=== PATIENT | female | born 1960 | race Caucasian/White ===

== ENCOUNTER 2016-09-01 09:58 | Emergency (ER) | payer BC ==
[~2016-09-01] VITALS: Ht 153.7 cm; Wt 53.6 kg
[2016-09-01 09:59] VITALS: TEMP 37; Ht 153.7 cm; Wt 53.6 kg
[2016-09-01 10:21] VITALS: O2SAT 95
[2016-09-01] MEDS ORDERED: IBUP-1050 PO (10:48)
[2016-09-01] MEDS ORDERED: ZNTT/150 PO (10:48)
[2016-09-01 11:16] LABS: BASO % 0.9 %; BASO ABS # 0.04 K/uL (0-0.2); COMPLETE YES; LYMPH % 27.9 %; LYMPH ABS # 1.29 K/uL (1.2-3.4); MEAN CELL VOLUME 88.2 fL (80-100); MEAN CORPUSCULAR HEMOGLOBIN 29.9 pg (25-34); MEAN CORPUSCULAR HGB CONC 33.9 g/dl (32-36); MEAN PLATELET VOLUME 9.1 fL (7.4-10.4); NEUT % 62.2 %; PLATELET COUNT 280 K/uL (130-400); RED BLOOD COUNT 4.08 M/uL (4.2-5.4); WHITE BLOOD COUNT 4.63 K/uL (4.8-10.8)
--- NOTE | 2016-09-01 11:16 | EMERGENCY ROOM VISIT NOTE ---
History Report prepared by Kenneth: Jamila Muñoz Under the Supervision of: Dr. Asha Gilbert D.O. First contact with patient: 10:48 Chief Complaint: CARDIAC ASSESSMENT Stated Complaint: CHEST PAIN History of Present Illness The patient is a 56 year old female who presents to the Emergency Room for a cardiac assessment. Three nights ago the patient woke up with pain in her back just below her left shoulder blade. She ignored this pain and woke up the next morning feeling fine. She went to work and came home, ate dinner, and went to bed. She felt fine when she went to bed, but woke up around 2-3am with left- sided jaw pain and left arm pain. She then developed central chest pain that she describes as burning. She thought that it was GERD, so she took a ranitidine and ibuprofen. The patient states that she has had pain like this before. Typically a heating pad on her chest helps to alleviate her pain. She tried using her heating pad and states that her pain improved. The next day the patient was feeling well again. She went to a picnic and ate dinner early. She was sitting and watching a movie when she developed central, burning chest pain again just before 10pm. She took another ranitidine and it did not help. Her pain improved with standing and walking around. The patient went to sleep but woke up before 6am with pain again. She took an ibuprofen and tried using her heating pad again. She states that she has been unable to get comfortable today. Her chest pain has been constant since last night. The patient states that she just feels worn out and generally weak at this time. She is not currently having any pain into her arms or back. She rates her current pain as a 2/10 in severity. The patient has had some cough, shortness of breath, and nausea with these symptoms, but states that they could be due to anxiety because she gets anxious when experiencing this chest pain. She denies fevers, chills, cough, cold symptoms, and vomiting. She recently traveled back to [place] from [place]. On review of EMR, pt has a history of an NSTEMI in March 2015. Was admitted, seen by cards, had echo and stress test, ultimately elevated troponin felt not to be primarily due to cardiac event. Pt states she did follow-up in the office with cardiology after that admission. Source of History: patient Onset: 3 nights ago Position: chest Symptom Intensity: 04/10 Quality: burning Timing: constant Modifying Factors (Relieving): ibuprofen, heat Associated Symptoms: + cough, + SOB, + nausea, + back pain, + weakness ( generalized), No fevers, No chills, No vomiting Note: Pt had left-sided jaw pain and left arm pain. Review of Systems See HPI for pertinent positives & negatives. A total of 10 systems reviewed and were otherwise negative. Past Medical & Surgical Medical Problems: (1) Normal colonoscopy Surgical Problems: (1) H/O esophagogastroduodenoscopy Social History Problems: (1) Tobacco use Family History FH: CAD (coronary artery disease) FATHER (CABG at age 66 ) FH: cancer MOTHER (Breast, Uterine ) Social History Smoking Status: Current Every Day Smoker Alcohol Use: none Drug Use: none Marital Status: single Housing Status: lives alone Occupation Status: employed Current/Historical Medications Scheduled Ibuprofen (Advil), 200-600 MG PO Q4H Ranitidine (Zantac), 150 MG PO DAILY Sucralfate (Carafate), 10 ML PO ACHS Allergies Coded Allergies: Doxycycline (Unverified Allergy, Unknown, ITCHING, 09/01/16) Penicillins (Verified Allergy, Unknown, ., 09/01/16) Sulfa Antibiotics (Verified Allergy, Unknown, ., 09/01/16) Adhesives (Verified Adverse Reaction, Intermediate, Rash - transdermal patches, 09/01/16) Iodinated Diagnostic Agents (Verified Adverse Reaction, Intermediate, SHORTNESS OF BREATH, 09/01/16) Physical Exam Vital Signs Date Time Temp Pulse Resp B/P (MAP) Pulse Ox O2 Delivery O2 Flow Rate FiO2 09/01/16 16:03 77 16 116/78 95 09/01/16 15:02 78 09/01/16 14:24 75 18 108/70 94 Room Air 09/01/16 13:35 70 18 117/74 97 Room Air 09/01/16 12:29 85 18 112/70 99 Room Air 09/01/16 11:42 76 18 113/76 95 Room Air 09/01/16 10:36 78 09/01/16 10:24 72 18 131/81 99 Room Air 09/01/16 10:21 95 Room Air 09/01/16 10:04 99 Room Air 09/01/16 10:03 99 Room Air 09/01/16 09:59 37.0 94 16 162/80 97 Room Air Physical Exam GENERAL: alert, well appearing, well nourished, no distress, non-toxic EYE EXAM: normal conjunctiva, PERRL and EOM's grossly intact OROPHARYNX: no exudate, no erythema, lips, buccal mucosa, and tongue normal and mucous membranes are moist NECK: supple, no nuchal rigidity, no adenopathy, non-tender LUNGS: Clear to auscultation. Normal chest wall mechanics, no w/r/r HEART: no murmurs, S1 normal and S2 normal, mild reproducible tenderness at b/l sternal borders, no crepitus, no step offs along ribs ABDOMEN: abdomen soft, non-tender, normo-active bowel sounds, no masses, no rebound or guarding. BACK: Back is symmetrical on inspection and there is no deformity, no midline tenderness, no CVA tenderness. SKIN: no rashes and no bruising UPPER EXTREMITIES: upper extremities are grossly normal. LOWER EXTREMITIES: No pitting edema. NEURO EXAM: Normal sensorium, cranial nerves II-XII grossly intact, normal speech, no gross weakness of arms, no gross weakness of legs. Medical Decision & Procedures ER Provider Diagnostic Interpretation: Radiology results have been interpreted by the radiologist and reviewed by me. SINGLE VIEW CHEST CLINICAL HISTORY: Atypical chest pain. FINDINGS: An AP, portable, upright chest radiograph is compared to study dated 11/28/2015. The examination is degraded by portable technique and patient rotation. The cardiomediastinal silhouette is unremarkable. The lungs and pleural spaces are clear. No pneumothorax is seen. The bony thorax is grossly intact. IMPRESSION: No active disease in the chest. Electronically signed by: Vivek Hernandez M.D. 09/01/2016 11:22 AM Dictated Date/Time: 09/01/2016 11:22 AM Laboratory Results 09/01/16 10:36 Red Blood Count 4.08, Mean Corpuscular Volume 88.2, Mean Corpuscular Hemoglobin 29.9, Mean Corpuscular Hemoglobin Concent 33.9, Mean Platelet Volume 9.1, Neutrophils (%) (Auto) 62.2, Lymphocytes (%) (Auto) 27.9, Monocytes (%) (Auto) 6.0, Eosinophils (%) (Auto) 3.0, Basophils (%) (Auto) 0.9, Neutrophils # (Auto) 2.88, Lymphocytes # (Auto) 1.29, Monocytes # (Auto) 0.28, Eosinophils # (Auto) 0.14, Basophils # (Auto) 0.04 09/01/16 10:36 Test 09/01/16 10:36 09/01/16 14:10 White Blood Count 4.63 K/uL (4.8-10.8) Red Blood Count 4.08 M/uL (4.2-5.4) Hemoglobin 12.2 g/dL (12.0-16.0) Hematocrit 36.0 % (37-47) Mean Corpuscular Volume 88.2 fL (80-100) Mean Corpuscular Hemoglobin 29.9 pg (25-34) Mean Corpuscular Hemoglobin Concent 33.9 g/dl (32-36) Platelet Count 280 K/uL (130-400) Mean Platelet Volume 9.1 fL (7.4-10.4) Neutrophils (%) (Auto) 62.2 % Lymphocytes (%) (Auto) 27.9 % Monocytes (%) (Auto) 6.0 % Eosinophils (%) (Auto) 3.0 % Basophils (%) (Auto) 0.9 % Neutrophils # (Auto) 2.88 K/uL (1.4-6.5) Lymphocytes # (Auto) 1.29 K/uL (1.2-3.4) Monocytes # (Auto) 0.28 K/uL (0.11-0.59) Eosinophils # (Auto) 0.14 K/uL (0-0.5) Basophils # (Auto) 0.04 K/uL (0-0.2) RDW Standard Deviation 41.2 fL (36.4-46.3) RDW Coefficient of Variation 12.7 % (11.5-14.5) Immature Granulocyte % (Auto) 0.0 % Immature Granulocyte # (Auto) 0.00 K/uL (0.00-0.02) Prothrombin Time 10.8 SECONDS (9.0-12.0) Prothromb Time International Ratio 1.0 (0.9-1.1) D-Dimer 310 ug/L FEU (0-500) Anion Gap 8.0 mmol/L (3-11) Est Creatinine Clear Calc Drug Dose 53.8 ml/min Estimated GFR () 87.5 Estimated GFR (Non- 75.5 BUN/Creatinine Ratio 16.0 (10-20) Calcium Level 9.0 mg/dl (8.5-10.1) Total Bilirubin 0.7 mg/dl (0.2-1) Aspartate Amino Transf (AST/SGOT) 19 U/L (15-37) Alanine Aminotransferase (ALT/SGPT) 20 U/L (12-78) Alkaline Phosphatase 72 U/L (45-117) Pro-B-Type Natriuretic Peptide 114 pg/ml (0-900) Total Protein 7.2 gm/dl (6.4-8.2) Albumin 4.0 gm/dl (3.4-5.0) Globulin 3.2 gm/dl (2.5-4.0) Albumin/Globulin Ratio 1.3 (0.9-2) Lipase 132 U/L (73-393) Thyroid Stimulating Hormone (TSH) 1.810 uIu/ml (0.300-4.500) Troponin I < 0.015 ng/ml (0-0.045) Laboratory results per my review. Medications Administered Medications (Trade) Dose Ordered Sig/Milena Route Start Time Stop Time Status Last Admin Dose Admin Al Hydroxide/Mg Hydroxide (Maalox Susp) 30 ml STK-MED ONCE .ROUTE 09/01/16 12:24 09/01/16 12:25 DC 09/01/16 12:27 30 ML Lidocaine HCl (Viscous Lidocaine 2% Soln) 20 ml STK-MED ONCE .ROUTE 09/01/16 12:24 09/01/16 12:25 DC 09/01/16 12:27 20 ML ECG Indication: chest pain Rate (beats per minute): 73 Rhythm: normal sinus Findings: no acute ischemic change, no ectopy, other (normal axis, normal intervals) ED Course 1048: The patient was evaluated in room B9. A complete history and physical exam was performed. 1202: I updated the patient on her results. She is still having pain. 1208: GI cocktail 24 ml PO 1456: The patient is feeling slightly better. 1457: Sucralfate 1 gm PO 1500: Pantoprazole Sodium 40 mg IV 10 ml @ mls/min 1525: I reassessed the patient at this time. She is feeling better and resting comfortably. I discussed the results and treatment plan with the patient. I answered all pertaining questions that she had. She expressed understanding and verbalized agreement. The patient will be discharged home. Medical Decision Review of EMR: In March of 2015 the patient had an NSTEMI. Exercise stress test from March 2015 was non-ischemic, echo normal LV systolic function, no wall function abnormalities. Differential diagnoses includes but is not limited to acute coronary syndrome, myocardial infarction, pericarditis, pulmonary embolus, aortic dissection, pneumonia, pneumothorax, musculoskeletal, shingles, esophageal. Medication Reconciliation: I attest that I have personally reviewed the patient' s current medication list. Blood pressure screening: Patient was found to have a slightly elevated blood pressure due to circumstances. I do not believe that the patient requires hypertension monitoring. HEART score 2 Pt well appearing here despite complaints. Some relief with meds, did not want to stay for additional medication. Trop negative x 2. VS stable. No hx of htn. Doubt dissection, pe, tamponade, effusion, perf, gi bleed, infiltrate, acs. Possible GERD/gastritis, possible costochondritis, possible component of anxiety. Discussed with pt f/u with PCP, daily use of ranitidine, cessation of smoking, sx to watch/return for, she verbalized understanding and was agreeable with plan. Impression Primary Impression: Chest pain Additional Impression: GERD (gastroesophageal reflux disease) Scribe Attestation The scribe's documentation has been prepared under my direction and personally reviewed by me in its entirety. I confirm that the note above accurately reflects all work, treatment, procedures, and medical decision making performed by me. Departure Information Dispostion Home / Self-Care Prescriptions Sucralfate (CARAFATE) 1 Gm/10 Ml Barbara 10 ML PO ACHS, #1 BTL Prov: Asha Gilbert, DO 09/01/16 Referrals Kady Aponte (PCP) Forms IMPORTANT VISIT INFORMATION Patient Instructions My [facility] Additional Instructions Please call and follow up with your family doctor. You may continue using Tylenol and ibuprofen as needed for pain. Please take your ranitidine daily instead of as needed. Please consider using the Carafate in addition. Please avoid any acidic foods which could irritate her stomach including alcohol, coffee, soda, tomato-based products, or citrus fruits. If you have any recurrent or worsening pain, develop numbness or tingling, trouble breathing, dizziness, nausea or vomiting, abdominal pain, or have any other new concerns, please return the emergency room. Problem Qualifiers Primary Impression: Chest pain Chest pain type: unspecified Qualified Codes: R07.9 - Chest pain, unspecified Additional Impression: GERD (gastroesophageal reflux disease) Esophagitis presence: esophagitis presence not specified Qualified Codes: K21.9 - Gastro-esophageal reflux disease without esophagitis
[2016-09-01 11:21] LABS: ALT/SGPT 20 U/L (12-78); BLOOD UREA NITROGEN 14 mg/dl (7-18); CARBON DIOXIDE 26 mmol/L (21-32); CHLORIDE 106 mmol/L (98-107); CREATININE 0.86 mg/dl (0.60-1.20); GLUCOSE 89 mg/dl (70-99); POTASSIUM 3.9 mmol/L (3.5-5.1); SODIUM 140 mmol/L (136-145)
--- NOTE | 2016-09-01 11:23 | DIAGNOSTIC IMAGING REPORT ---
SINGLE VIEW CHEST CLINICAL HISTORY: Atypical chest pain. FINDINGS: An AP, portable, upright chest radiograph is compared to study dated 11/28/2015. The examination is degraded by portable technique and patient rotation. The cardiomediastinal silhouette is unremarkable. The lungs and pleural spaces are clear. No pneumothorax is seen. The bony thorax is grossly intact. IMPRESSION: No active disease in the chest. Electronically signed by: Vivek Hernandez M.D. 09/01/2016 11:22 AM Dictated Date/Time: 09/01/2016 11:22 AM
[2016-09-01 11:32] LABS: ALB/GLOB RATIO 1.3 (0.9-2); ALKALINE PHOSPHATASE 72 U/L (45-117); AST/SGOT 19 U/L (15-37)
[2016-09-01 11:36] LABS: PROTHROMBIN TIME (PATIENT) 10.8 SECONDS (9.0-12.0)
[2016-09-01] MEDS ORDERED: GI COCKTAIL PO STA (12:08)
[2016-09-01] MEDS ORDERED: ALUMINUM/MAGNESIUM SUSP 30 ML UDC ONE (12:24)
[2016-09-01] MEDS ORDERED: LIDOCAINE HCL 2% VISC SOLN 20 ML UDC ONE (12:24)
[2016-09-01] MEDS ORDERED: SUCRALFATE 1 GM/10 ML UDC PO STA (14:57)
[2016-09-01] MEDS ORDERED: PANTOprazole INJ 40 MG in SYRINGE 0 ML IV ONE (15:00)
[2016-09-01] MEDS ORDERED: CRFL PO (15:37)
[2016-09-01 16:03] VITALS: BP 116/78; PULSE 77; O2SAT 95
== END 2016-09-01 16:04 | disposition home or self-care (01) ==
LOC: C.EDB 09:59
DX: R07.9 Chest pain, unspecified (principal); K21.9 Gastro-esophageal reflux disease without esophagitis; F17.200 Nicotine dependence, unspecified, uncomplicated; I25.2 Old myocardial infarction; Z98.890 Other specified postprocedural states; Z82.49 Family history of ischemic heart disease and other diseases of the circulatory system; Z80.3 Family history of malignant neoplasm of breast; Z80.49 Family history of malignant neoplasm of other genital organs; Z79.899 Other long term (current) drug therapy

== ENCOUNTER → 2016-11-04 | Outpatient (CLI) | payer BC ==
[~2016-11-04] MED LIST: CRFL PO; IBUP-1050 PO; ZNTT/150 PO
--- NOTE | 2016-11-05 12:43 | MAMMOGRAPHY REPORT ---
BILATERAL DIGITAL SCREENING MAMMOGRAM TOMOSYNTHESIS WITH CAD: 11/04/2016 CLINICAL HISTORY: Routine screening. TECHNIQUE: Breast tomosynthesis in addition to standard 2D mammography was performed. Current study was also evaluated with a Computer Aided Detection (CAD) system. COMPARISON: Comparison is made to exams dated: 08/27/2015 mammogram, 09/13/2014 mammogram, 03/13/2014 m ammogram, 09/05/2013 mammogram, 08/24/2013 mammogram, and 07/17/2011 mammogram - [facility] nter. BREAST COMPOSITION: The tissue of both breasts is heterogeneously dense, which may obscure small mas ses. FINDINGS: No suspicious masses, calcifications, or areas of architectural distortion are noted in ei ther breast. There has been no significant interval change compared to prior exams. IMPRESSION: ACR BI-RADS CATEGORY 1: NEGATIVE There is no mammographic evidence of malignancy. A 1 year screening mammogram is recommended. The pa tient will receive written notification of the results. Approximately 10% of breast cancers are not detected with mammography. A negative mammographic report should not delay biopsy if a clinically suggestive mass is present. Scarlet King M.D. ah/:11/04/2016 16:12:28 Slot Floorperson: Modesta ARMENTA(Sailaja)(Pedro Luis), [facility] letter sent: Normal 1/2 BI-RADS Code: ACR BI-RADS Category 1: Negative
== END | disposition home or self-care (01) ==
LOC: C.MAMM 15:49
PROVIDERS: ATTEND Nurse Practitioner Family
DX: Z12.31 Encounter for screening mammogram for malignant neoplasm of breast (principal)

== ENCOUNTER → 2017-05-14 | Outpatient (CLI) | payer OTHER ==
[~2017-05-14] MED LIST changes: -CRFL PO; +RANI150T85 PO; -ZNTT/150 PO
--- NOTE | 2017-05-14 10:51 | DIAGNOSTIC IMAGING REPORT ---
ULTRASOUND RIGHT LOWER EXTREMITY VENOUS CLINICAL HISTORY: Right leg pain. COMPARISON STUDY: No priors. TECHNIQUE: Real-time, grayscale, and color Doppler sonography of the deep veins of the right lower extremity was performed from the inguinal crease to the calf. Compression and augmentation were utilized. FINDINGS: There is no sonographic evidence of deep venous thrombosis identified in the right lower extremity. The common femoral, superficial femoral, and popliteal veins are patent and normally compressible. The greater saphenous vein and the profunda femoris vein at the junction with the common femoral vein are clear. The visualized calf veins are patent. IMPRESSION: There is no sonographic evidence of deep venous thrombosis identified in the right lower extremity. Electronically signed by: Vivek Hernandez M.D. 05/14/2017 10:50 AM Dictated Date/Time: 05/14/2017 10:49 AM
== END | disposition home or self-care (01) ==
LOC: C.ULTRBC 09:53
PROVIDERS: ATTEND Family Medicine
DX: M79.661 Pain in right lower leg (principal)

== ENCOUNTER → 2017-07-13 | Outpatient (CLI) | payer OTHER ==
--- NOTE | 2017-07-13 22:40 | DIAGNOSTIC IMAGING REPORT ---
CHEST 2 VIEWS ROUTINE HISTORY: 57 years-old Female R50.9;R07.9 acute cough and fever COMPARISON: Chest radiograph 09/01/2016 TECHNIQUE: PA and lateral views of the chest FINDINGS: Cardiomediastinal and hilar silhouettes are within normal limits. No pneumothorax, pleural effusion or overt pulmonary edema. Subtle subsegmental alveolar opacities of the inferior segment lingula are seen best on the lateral view with air bronchograms. Bones of the chest appear grossly intact. IMPRESSION: Subtle subsegmental alveolar opacities of the lingula with air bronchograms seen best on the lateral view may reflect pneumonia within the appropriate clinical setting. The above report was generated using voice recognition software. It may contain grammatical, syntax or spelling errors. Electronically signed by: Onur Burkett M.D. 07/13/2017 10:39 PM Dictated Date/Time: 07/13/2017 10:35 PM
== END | disposition home or self-care (01) ==
LOC: C.RAD 21:16
PROVIDERS: ATTEND Family Medicine
DX: R91.8 Other nonspecific abnormal finding of lung field (principal); R50.9 Fever, unspecified; R07.9 Chest pain, unspecified

== ENCOUNTER 2017-10-23 03:05 | Emergency (ER) | payer OTHER ==
[~2017-10-23] VITALS: Ht 154.9 cm; Wt 48.4 kg
[2017-10-23 03:08] VITALS: TEMP 36.9; Ht 154.9 cm; Wt 48.4 kg
[2017-10-23 03:30] VITALS: O2SAT 98
[2017-10-23 03:47] LABS: BASO % 0.4 %; BASO ABS # 0.02 K/uL (0-0.2); EOS % 2.5 %; EOS ABS # 0.13 K/uL (0-0.5); HEMATOCRIT 36.8 % (37-47); HEMOGLOBIN 12.6 g/dL (12.0-16.0); IG# 0.01 K/uL (0.00-0.02); LYMPH % 47.9 %; LYMPH ABS # 2.54 K/uL (1.2-3.4); MEAN CELL VOLUME 89.3 fL (80-100); MEAN CORPUSCULAR HEMOGLOBIN 30.6 pg (25-34); MEAN CORPUSCULAR HGB CONC 34.2 g/dl (32-36); MEAN PLATELET VOLUME 9.6 fL (7.4-10.4); MONO % 6.8 %; MONO ABS # 0.36 K/uL (0.11-0.59); NEUT % 42.2 %; NEUT ABS # 2.24 K/uL (1.4-6.5); PLATELET COUNT 231 K/uL (130-400); RED CELL DISTRIBUTION WIDTH SD 42.5 fL (36.4-46.3)
[2017-10-23 03:55] LABS: ISTAT CREATININE 0.8 mg/dl (0.6-1.3); ISTAT IONIZED CALCIUM 1.16 mmol/l (1.12-1.32); ISTAT POTASSIUM 3.4 mEq/L (3.3-5.0)
[2017-10-23] MEDS ORDERED: METHYLPREDNISOLONE 125 MG VIAL IV STA (04:05)
[2017-10-23] MEDS ORDERED: SODIUM CHLORIDE 0.9% 1000ML 1,000 ML IV STA (04:05)
[2017-10-23] MEDS ORDERED: DiphenhydrAMINE HCL 50 MG/ML VIAL IV STA (04:05)
[2017-10-23] MEDS ORDERED: RANITIDINE HCL 150 MG TAB PO STA (04:05)
--- NOTE | 2017-10-23 04:05 | EMERGENCY ROOM VISIT NOTE ---
History Report prepared by Kenneth: Tammy Espinal Under the Supervision of: Dr. Navin Weiss M.D. First contact with patient: 03:11 Chief Complaint: TACHYCARDIA Stated Complaint: TACHYCARDIA History of Present Illness The patient is a 57 year old female who presents to the Emergency Room with complaints of worsening tachycardia that started in August 2017. The patient reports that her tachycardia is causing her chest pain in the center of her chest, which worsens when she lies down. She notes that she has had difficulty sleeping at night secondary to her chest pain. She describes her current chest pain as a burning sensation. The patient also complains of abdominal pain and sore ribs. She states that she is also experiencing GERD and is taking medication for it. She notes that she recently has experienced difficulty mowing her lawn and now has to split the chore between several sessions. She denies any insect bites although she claims to spend a lot of time outside. The patient reports that she is scheduled to have a stress test in 3 days. She also reports that she smokes 4 cigarettes a day and takes baby aspirin. She states she has a family history of PACs. Source of History: patient Onset: August 2017 Position: chest Quality: other (tachycardia) Timing: worsening Modifying Factors (Worsening): other (lying down) Associated Symptoms: + abdominal pain Note: Additional symptoms: difficulty sleeping, sore ribs, GERD Denies: insect bites Review of Systems See HPI for pertinent positives & negatives. A total of 10 systems reviewed and were otherwise negative. Past Medical & Surgical Medical Problems: (1) GERD (gastroesophageal reflux disease) (2) Normal colonoscopy Surgical Problems: (1) H/O esophagogastroduodenoscopy Social History Problems: (1) Tobacco use Family History FH: CAD (coronary artery disease) FATHER (CABG at age 66 ) FH: cancer MOTHER (Breast, Uterine ) Social History Smoking Status: Current Every Day Smoker Alcohol Use: none Drug Use: none Marital Status: single Housing Status: lives alone Occupation Status: employed Current/Historical Medications Scheduled Ranitidine (Zantac), 150 MG PO DAILY Allergies Coded Allergies: Doxycycline (Unverified Allergy, Unknown, ITCHING, 10/23/17) Penicillins (Verified Allergy, Unknown, ., 10/23/17) Sulfa Antibiotics (Verified Allergy, Unknown, ., 10/23/17) Adhesives (Verified Adverse Reaction, Intermediate, Rash - transdermal patches, 10/23/17) Iodinated Diagnostic Agents (Verified Adverse Reaction, Intermediate, SHORTNESS OF BREATH, 10/23/17) Physical Exam Vital Signs Date Time Temp Pulse Resp B/P (MAP) Pulse Ox O2 Delivery O2 Flow Rate FiO2 10/23/17 06:58 68 16 112/63 100 10/23/17 06:03 64 15 102/63 99 Room Air 10/23/17 05:11 57 16 147/70 99 Room Air 10/23/17 04:44 73 22 152/85 99 Room Air 10/23/17 04:37 72 10/23/17 04:05 92 17 99 Room Air 10/23/17 04:00 118/70 10/23/17 03:35 81 16 98 Room Air 10/23/17 03:33 131/78 10/23/17 03:30 98 Room Air 10/23/17 03:30 87 10/23/17 03:30 98 Room Air 10/23/17 03:25 98 Room Air 10/23/17 03:08 36.9 115 18 157/87 100 Room Air Physical Exam GENERAL: Awake, alert, well-appearing, in no acute distress HENT: Normocephalic, atraumatic. Oropharynx unremarkable. EYES: Normal conjunctiva. Sclera non-icteric. NECK: Supple. No nuchal rigidity. FROM. No JVD. RESPIRATORY: Clear to auscultation. CARDIAC: Regular rate, normal rhythm. Extremities warm and well perfused. Pulses equal. ABDOMEN: Soft, non-distended. No tenderness to palpation. No rebound or guarding. No masses. RECTAL: Deferred. MUSCULOSKELETAL: Chest examination reveals no tenderness. The back is symmetrical on inspection without obvious abnormality. There is no CVA tenderness to palpation. No joint edema. LOWER EXTREMITIES: Calves are equal size bilaterally and non-tender. No edema. No discoloration. NEURO: Normal sensorium. No sensory or motor deficits noted. SKIN: No rash or jaundice noted. Medical Decision & Procedures ER Provider Diagnostic Interpretation: CT ANGIOGRAM OF THE CHEST CLINICAL HISTORY: Atypical chest pain, shortness of breath, elevated d-dimer, tachycardia. COMPARISON STUDY: Chest x-ray dated 10/23/2017 TECHNIQUE: Following the IV administration of 83 mL of Optiray-320, CT angiogram of the thorax was performed from the thoracic inlet to the lung bases utilizing the pulmonary embolus protocol. Images are reviewed in the axial, sagittal, and coronal planes. IV contrast was administered without complication. MIP imaging was performed. A dose lowering technique was utilized adhering to the principles of ALARA. CT DOSE: 204.97 mGy.cm FINDINGS: No pathologically enlarged axillary mediastinal or hilar lymph nodes were visualized. There was no evidence of thoracic aortic dilatation. There were no pulmonary artery filling defects to indicate acute pulmonary embolism. No pleural effusions are visualized. There was no evidence of focal pulmonary consolidation. Visualized portions of the upper abdomen reveal two nonspecific hepatic hypodensities, possibly representing cysts. IMPRESSION: 1. No evidence of acute pulmonary embolism 2. No evidence of focal pulmonary consolidation Electronically signed by: Mike Enrique M.D. 10/23/2017 8:40 AM Dictated Date/Time: 10/23/2017 8:36 AM CHEST ONE VIEW PORTABLE CLINICAL HISTORY: Atypical chest pain COMPARISON STUDY: 07/13/2017 FINDINGS: The cardiac and mediastinal contours are normal. There is no evidence of focal pulmonary consolidation. There is no evidence of failure. No pleural effusions are visualized.[ IMPRESSION: No active disease in the chest. Electronically signed by: Mike Enrique M.D. 10/23/2017 8:01 AM Dictated Date/Time: 10/23/2017 8:00 AM Laboratory Results 10/23/17 03:30 Red Blood Count 4.12, Mean Corpuscular Volume 89.3, Mean Corpuscular Hemoglobin 30.6, Mean Corpuscular Hemoglobin Concent 34.2, Mean Platelet Volume 9.6, Neutrophils (%) (Auto) 42.2, Lymphocytes (%) (Auto) 47.9, Monocytes (%) (Auto) 6.8, Eosinophils (%) (Auto) 2.5, Basophils (%) (Auto) 0.4, Neutrophils # (Auto) 2.24, Lymphocytes # (Auto) 2.54, Monocytes # (Auto) 0.36, Eosinophils # (Auto) 0.13, Basophils # (Auto) 0.02 10/23/17 03:30 Test 10/23/17 03:30 10/23/17 03:39 10/23/17 03:42 White Blood Count 5.30 K/uL (4.8-10.8) Red Blood Count 4.12 M/uL (4.2-5.4) Hemoglobin 12.6 g/dL (12.0-16.0) Hematocrit 36.8 % (37-47) Mean Corpuscular Volume 89.3 fL (80-100) Mean Corpuscular Hemoglobin 30.6 pg (25-34) Mean Corpuscular Hemoglobin Concent 34.2 g/dl (32-36) Platelet Count 231 K/uL (130-400) Mean Platelet Volume 9.6 fL (7.4-10.4) Neutrophils (%) (Auto) 42.2 % Lymphocytes (%) (Auto) 47.9 % Monocytes (%) (Auto) 6.8 % Eosinophils (%) (Auto) 2.5 % Basophils (%) (Auto) 0.4 % Neutrophils # (Auto) 2.24 K/uL (1.4-6.5) Lymphocytes # (Auto) 2.54 K/uL (1.2-3.4) Monocytes # (Auto) 0.36 K/uL (0.11-0.59) Eosinophils # (Auto) 0.13 K/uL (0-0.5) Basophils # (Auto) 0.02 K/uL (0-0.2) RDW Standard Deviation 42.5 fL (36.4-46.3) RDW Coefficient of Variation 13.0 % (11.5-14.5) Immature Granulocyte % (Auto) 0.2 % Immature Granulocyte # (Auto) 0.01 K/uL (0.00-0.02) Est Creatinine Clear Calc Drug Dose 53.8 ml/min Estimated GFR () 85.7 Estimated GFR (Non- 74.0 BUN/Creatinine Ratio 13.8 (10-20) Calcium Level 9.0 mg/dl (8.5-10.1) Total Bilirubin 0.5 mg/dl (0.2-1) Direct Bilirubin 0.1 mg/dl (0-0.2) Aspartate Amino Transf (AST/SGOT) 21 U/L (15-37) Alanine Aminotransferase (ALT/SGPT) 24 U/L (12-78) Alkaline Phosphatase 78 U/L (45-117) Total Creatine Kinase 155 U/L (26-192) Creatine Kinase MB 1.7 ng/ml (0.5-3.6) Creatine Kinase MB Ratio 1.1 (0-3.0) Troponin I < 0.015 ng/ml (0-0.045) Total Protein 7.6 gm/dl (6.4-8.2) Albumin 4.3 gm/dl (3.4-5.0) Lipase 140 U/L (73-393) Bedside D-Dimer > 450 ng/mlFEU (0-450) Bedside Hemoglobin 11.9 g/dl (12.0-16.0) Bedside Hematocrit 35 % (37-47) Bedside Sodium 141 mEq/L (135-144) Bedside Potassium 3.4 mEq/L (3.3-5.0) Bedside Chloride 103 mEq/L (101-112) Bedside Total CO2 26 mEq/l (24-31) Anion Gap 16.0 mmol/L (16-25) Bedside Blood Urea Nitrogen 11 mg/dl (7-18) Bedside Creatinine 0.8 mg/dl (0.6-1.3) Bedside Glucose (other) 100 mg/dl (70-99) Bedside Ionized Calcium (Magaly) 1.16 mmol/l (1.12-1.32) Medications Administered Medications (Trade) Dose Ordered Sig/Milena Route Start Time Stop Time Status Last Admin Dose Admin Sodium Chloride 1,000 ml @ 999 mls/hr Q1H1M STAT IV 10/23/17 04:05 10/23/17 05:05 DC 10/23/17 04:24 999 MLS/HR Methylprednisolone Sodium Succinate (Solu-Medrol IV) 125 mg NOW STAT IV 10/23/17 04:05 10/23/17 04:08 DC 10/23/17 04:25 125 MG Ranitidine HCl (zANTac TAB) 150 mg NOW STAT PO 10/23/17 04:05 10/23/17 04:08 DC 10/23/17 04:24 150 MG Diphenhydramine HCl (Benadryl Inj) 50 mg NOW STAT IV 10/23/17 04:05 10/23/17 04:08 DC 10/23/17 04:25 50 MG Potassium Chloride (Klor-Con M10) 40 meq STK-MED ONCE .ROUTE 10/23/17 04:27 10/23/17 04:28 DC 10/23/17 04:29 40 MEQ ECG Per My Interpretation Indication: tachycardia Rate (beats per minute): 103 Rhythm: sinus tachycardia Findings: other (no ST elevation, no ST depression) ED Course 0315: Past medical records reviewed. The patient was evaluated in room B2. A complete history and physical examination was performed. 0633: Upon reexamination the patient is resting. I discussed results and treatment plan with the patient. She verbalizes agreement and understanding. The patient is ready for discharge. Medical Decision Etiologies such as cardiac ischemia, aortic dissection, pulmonary embolism, pneumonia, pneumothorax, musculoskeletal, infections, pericarditis, myocarditis , esophageal rupture, gastrointestinal, as well as others were entertained. This is a 57-year-old female who arrives during a period of high volume and high acuity during single patient coverage complaining of tachycardia. The patient has a stress test on Wednesday. In addition it was felt that the patient is having reflux however she does not like taking the reflux medication she feels it makes her sick. The patient has normal EKG as well as normal troponin. She does have an elevation in her d-dimer however she is allergic to the IV dye. For this reason the patient was given Solu-Medrol Benadryl and Zantac. She was sent for CAT scan of the chest which did not show any evidence of PE. Based on this finding I feel the patient can be safely discharged home. I stressed no strenuous activity until her follow-up with cardiology on Wednesday. Patient was in agreement with the treatment plan. Medication Reconcilliation Current Medication List: was personally reviewed by me Blood Pressure Screening Patient's blood pressure: Normal blood pressure Impression Primary Impression: Chest pain Scribe Attestation The scribe's documentation has been prepared under my direction and personally reviewed by me in its entirety. I confirm that the note above accurately reflects all work, treatment, procedures, and medical decision making performed by me. Departure Information Dispostion Home / Self-Care Referrals Alicia Cottrell D.O. (PCP) Forms HOME CARE DOCUMENTATION FORM, IMPORTANT VISIT INFORMATION, WORK / SCHOOL INSTRUCTIONS Patient Instructions My [facility] Additional Instructions Follow up with DR Melendez's office No strenuous activity until follow up Clear liquid diet next 48 hours Take 5 ml Maalox before every meal and at bedtime You have been examined and treated today on an emergency basis only. This is not a substitute for, or an effort to provide, complete comprehensive medical care. It is impossible to recognize and treat all injuries or illnesses in a single emergency department visit. It is therefore important that you follow up closely with Dr Cottrell. Call as soon as possible for an appointment. Thank you for your time and consideration. I look forward to speaking with you again soon. Please don't hesitate to call us if you have any questions. Problem Qualifiers Primary Impression: Chest pain Chest pain type: unspecified Qualified Codes: R07.9 - Chest pain, unspecified
[2017-10-23 04:11] LABS: ALBUMIN 4.3 gm/dl (3.4-5.0); ALKALINE PHOSPHATASE 78 U/L (45-117); ALT/SGPT 24 U/L (12-78); AST/SGOT 21 U/L (15-37); BLOOD UREA NITROGEN 12 mg/dl (7-18); CARBON DIOXIDE 24 mmol/L (21-32); CKMB 1.7 ng/ml (0.5-3.6); CREATININE 0.87 mg/dl (0.60-1.20); GLUCOSE 94 mg/dl (70-99); LIPASE 140 U/L (73-393); POTASSIUM 3.4 mmol/L (3.5-5.1); SODIUM 140 mmol/L (136-145); TOTAL PROTEIN 7.6 gm/dl (6.4-8.2)
[2017-10-23] MEDS ORDERED: POTASSIUM CHLORIDE 20 MEQ TABCR PO STA (04:24)
[2017-10-23] MEDS ORDERED: POTASSIUM CHLORIDE 10 MEQ TABCR ONE (04:27)
[2017-10-23] MEDS ORDERED: OPTIRAY 320 IV PRN (04:30)
[2017-10-23 06:58] VITALS: BP 112/63; PULSE 68; O2SAT 100
--- NOTE | 2017-10-23 08:02 | DIAGNOSTIC IMAGING REPORT ---
CHEST ONE VIEW PORTABLE CLINICAL HISTORY: Atypical chest pain COMPARISON STUDY: 07/13/2017 FINDINGS: The cardiac and mediastinal contours are normal. There is no evidence of focal pulmonary consolidation. There is no evidence of failure. No pleural effusions are visualized.[ IMPRESSION: No active disease in the chest. Electronically signed by: Mike Enrique M.D. 10/23/2017 8:01 AM Dictated Date/Time: 10/23/2017 8:00 AM
--- NOTE | 2017-10-23 08:41 | DIAGNOSTIC IMAGING REPORT ---
CT ANGIOGRAM OF THE CHEST CLINICAL HISTORY: Atypical chest pain, shortness of breath, elevated d-dimer, tachycardia. COMPARISON STUDY: Chest x-ray dated 10/23/2017 TECHNIQUE: Following the IV administration of 83 mL of Optiray-320, CT angiogram of the thorax was performed from the thoracic inlet to the lung bases utilizing the pulmonary embolus protocol. Images are reviewed in the axial, sagittal, and coronal planes. IV contrast was administered without complication. MIP imaging was performed. A dose lowering technique was utilized adhering to the principles of ALARA. CT DOSE: 204.97 mGy.cm FINDINGS: No pathologically enlarged axillary mediastinal or hilar lymph nodes were visualized. There was no evidence of thoracic aortic dilatation. There were no pulmonary artery filling defects to indicate acute pulmonary embolism. No pleural effusions are visualized. There was no evidence of focal pulmonary consolidation. Visualized portions of the upper abdomen reveal two nonspecific hepatic hypodensities, possibly representing cysts. IMPRESSION: 1. No evidence of acute pulmonary embolism 2. No evidence of focal pulmonary consolidation Electronically signed by: Mike Enrique M.D. 10/23/2017 8:40 AM Dictated Date/Time: 10/23/2017 8:36 AM
== END 2017-10-23 06:58 | disposition home or self-care (01) ==
LOC: C.EDB 03:06
DX: R07.9 Chest pain, unspecified (principal); K21.9 Gastro-esophageal reflux disease without esophagitis; F17.200 Nicotine dependence, unspecified, uncomplicated; Z88.8 Allergy status to other drugs, medicaments and biological substances; Z88.0 Allergy status to penicillin; Z88.2 Allergy status to sulfonamides